=== PATIENT | male | born 1965 | race Caucasian/White ===

== ENCOUNTER → 2016-12-05 | Outpatient (CLI) | payer OTHER ==
[~2016-12-05] MED LIST: Gadobutrol 7.5 mMOL/7.5 ML SDV IVPUSH STA
--- NOTE | 2016-12-05 14:51 | MR ---
EXAMINATION: MRI cervical spine HISTORY: Dizziness COMPARISON: CT dated 11/18/2013 TECHNIQUE: Multiplanar and multisequence images obtained through the cervical spine without contrast . FINDINGS: The cervical spinal alignment appears normal. The vertebral body heights appear well maint ained. There is no abnormal bone marrow signal. The cervical spinal cord signal appears normal. The paravertebral soft tissues are within normal limits. The visualized intracranial compartments appear normal. C2-C3: Unremarkable. C3-C4: Small diffuse disc bulge with mild spinal canal stenosis. Mild to moderate left neural forami nal stenosis. C4-C5: Tiny diffuse disc bulge without significant spinal canal stenosis. Mild left neural foraminal stenosis. C5-C6: Grossly unremarkable. C6-C7: Mild diffuse disc bulge without significant spinal canal stenosis. Moderate left neural emily inal stenosis accentuated by uncovertebral hypertrophy. C7-T1: Unremarkable. IMPRESSION: Mild multilevel degenerative disc disease noted within the cervical spine with individua l details above.
--- NOTE | 2016-12-05 16:55 | MR ---
EXAMINATION: MRI of the brain with and without contrast. TECHNIQUE: Multiplanar and multisequence imaging of the brain without and following the administrati on of Gadavist. HISTORY: Dizziness. FINDINGS: Cerebral hemispheres and the deep nuclei are without hemorrhage, mass, edema, enhancement or atroph y. There is a single tiny nonspecific right frontal subcortical FLAIR signal abnormality. No abnorma l diffusion restriction. No extraaxial collections or hemorrhage. The ventricular system is of nor mal size and configuration without hydrocephalus. The brainstem and cerebellum are without hemorrha ge, mass, edema, gliosis, enhancement or atrophy. The carotid basilar artery flow voids are intact. The otomastoid airspaces are clear. No internal auditory canal or cerebellopontine angle masses or enhancement. Moderate mucosal thickening is noted within the paranasal sinuses. The globes, optic ne rves, orbital apices, optic chiasm, optic tracts, and visual cortices are unremarkable. The pituit jesus and sella turcica are unremarkable. No meningeal enhancement. The craniocervical junction is u nremarkable. No siderosis or evidence of vascular malformation. The calvarium is intact. IMPRESSION: 1. No acute intracranial findings. 2. Single subcortical FLAIR signal focus within the subcortical right frontal lobe. Possible early s mall vessel ischemic change, however nonspecific. 3. Moderate paranasal sinus disease.
== END ==
LOC: MW.MRI 09:16
DX: R42 Dizziness and giddiness (principal); J32.4 Chronic pansinusitis; M48.02 Spinal stenosis, cervical region; M47.9 Spondylosis, unspecified
CPT/HCPCS: 70553; 72141; A9585

== ENCOUNTER 2017-09-06 08:25 | Emergency (ER) | payer BC, OTHER ==
[2017-09-06] MEDS ORDERED: Albuterol/Ipratropium 3.0-0.5 MG/3 ML Neb Soln NEB ONE (08:36)
[2017-09-06] MEDS ORDERED: Aspirin 81 MG Tab.Chew PO ONE (08:36)
[2017-09-06] MEDS ORDERED: Sodium Chloride 0.9% 1,000 ML IV ONE (08:36)
--- NOTE | 2017-09-06 08:43 | EDM.PDOC ---
ED HPI GENERAL MEDICAL PROBLEM - General Chief Complaint: Respiratory Problem Stated Complaint: SHORTNESS OF BREATH Time Seen by Provider: 09/06/17 08:34 - History of Present Illness INITIAL COMMENTS - FREE TEXT/NARRATIVE: HISTORY AND PHYSICAL: History of present illness: Patient's 52-year-old white male sensory concern of shortness of breath he states his developed somewhat acutely he was driving his truck he denies chest pain nausea vomiting fever chills or other complaints he denies history of DVT or pulmonary embolus Review of systems: As per history of present illness and below otherwise all systems reviewed and negative. Past medical history: As per history of present illness and as reviewed below otherwise noncontributory. Surgical history: As per history of present illness and as reviewed below otherwise noncontributory. Social history: No reported history of drug or alcohol abuse. Family history: As per history of present illness and as reviewed below otherwise noncontributory. Physical exam: HEENT: Atraumatic, normocephalic, pupils reactive, negative for conjunctival pallor or scleral icterus, mucous membranes moist, throat clear, neck supple, nontender, trachea midline. Lungs: Diminished, breath sounds equal bilaterally, chest nontender. Heart: S1S2, regular, negative for clicks, rubs, or JVD. Abdomen: Soft, nondistended, nontender. Negative for masses or hepatosplenomegaly. Negative for costovertebral tenderness. Pelvis: Stable nontender. Genitourinary: Deferred. Rectal: Deferred. Extremities: Atraumatic, negative for cords or calf pain. Neurovascular unremarkable. Neuro: Awake, alert, oriented. Cranial nerves II through XII unremarkable. Cerebellum unremarkable. Motor and sensory unremarkable throughout. Exam nonfocal. Diagnostics: CBC CMP PT/INR troponin CTA chest carboxyhemoglobin ABG influenza screen Therapeutics: Albuterol ipratropium nebulizer Impression: 1 dyspnea Definitive disposition and diagnosis as appropriate pending reevaluation and review of above. - Related Data Allergies Allergy/AdvReac Type Severity Reaction Status Date / Time oxycodone Allergy Rash Verified 09/06/17 08:29 Home Meds: Home Meds Cholesterol Med 09/06/17 [History] Past Medical History Cardiovascular History: Reports: High Cholesterol Musculoskeletal History: Reports: Neck Pain, Chronic, Osteoarthritis Endocrine/Metabolic History: Reports: Other (See Below) Other Endocrine/Metabolic History: "thryroid problems" - Infectious Disease History Infectious Disease History: Reports: Measles, Mumps - Past Surgical History Musculoskeletal Surgical History: Reports: Arthroscopic Knee, Other (See Below) Dermatological Surgical History: Reports: Plastic Surgical Reconstruction/Repair Social & Family History - Family History Cardiac: Reports: Bypass Oncologic: Reports: Colon, Pancreatic - Tobacco Use Smoking Status *Q: Never Smoker Second Hand Smoke Exposure: No - Caffeine Use Caffeine Use: Reports: Coffee - Recreational Drug Use Recreational Drug Use: No ED ROS GENERAL - Review of Systems Review Of Systems: ROS reveals no pertinent complaints other than HPI. ED EXAM, GENERAL - Physical Exam Exam: See Below (dictated) Course - Vital Signs Last Recorded V/S: Last Vital Signs Temp 36.4 C 09/06/17 08:26 Pulse 106 H 09/06/17 08:26 Resp 24 H 09/06/17 09:00 BP 119/81 09/06/17 09:00 Pulse Ox 95 09/06/17 09:12 - Orders/Labs/Meds Orders: Active Orders 24 hr Category Date Time Status Cardiac Monitoring [RC] . DIRECTED Care 09/06/17 08:34 Active EKG Documentation Completion [RC] STAT Care 09/06/17 08:31 Active EKG Documentation Completion [RC] STAT Care 09/06/17 08:34 Active Oxygen Therapy, ED [RC] ASDIRECTED Care 09/06/17 08:34 Active Pulse Oximetry [RC] ASDIRECTED Care 09/06/17 08:34 Active RT Aerosol Therapy [RC] ASDIRECTED Care 09/06/17 08:36 Active Ang Chest [CT] Stat Exams 09/06/17 08:35 Taken Labs: Laboratory Tests 09/06/17 09/06/17 09/06/17 Range/Units 08:45 08:45 08:45 WBC 10.14 (4.0-11.0) K/uL RBC 5.49 (4.50-5.90) M/uL Hgb 17.1 H (13.0-17.0) g/dL Hct 49.9 (38.0-50.0) % MCV 90.9 (80.0-98.0) fL MCH 31.1 (27.0-32.0) pg MCHC 34.3 (31.0-37.0) g/dL RDW Std Deviation 43.0 (28.0-62.0) fl RDW Coeff of Colby 13 (11.0-15.0) % Plt Count 327 (150-400) K/uL MPV 10.00 (7.40-12.00) fL Neut % (Auto) 62.9 (48.0-80.0) % Lymph % (Auto) 16.4 (16.0-40.0) % [place] % (Auto) 9.2 (0.0-15.0) % Eos % (Auto) 9.6 H (0.0-7.0) % Baso % (Auto) 1.9 H (0.0-1.5) % Neut # (Auto) 6.4 H (1.4-5.7) K/uL Lymph # (Auto) 1.7 (0.6-2.4) K/uL [place] # (Auto) 0.9 H (0.0-0.8) K/uL Eos # (Auto) 1.0 H (0.0-0.7) K/uL Baso # (Auto) 0.2 H (0.0-0.1) K/uL INR 1.08 (0.86-1.11) ABG pH (7.35-7.45) ABG pCO2 (35-45) mmHG ABG pO2 (75-100) mmHG ABG HCO3 (22-26) mEq/L ABG Total CO2 ABG Base Excess (-2.0-2.0) ABG Carboxyhemoglobin (0-15) % Sodium (136-146) mmol/L Potassium (3.5-5.1) mmol/L Chloride (98-110) mmol/L Carbon Dioxide (21-31) mmol/L BUN (6.0-23.0) mg/dL Creatinine (0.6-1.5) mg/dL Est Cr Clr Drug Dosing mL/min Estimated GFR (MDRD) ml/min Glucose (60-110) mg/dL Calcium (8.8-10.8) mg/dL Total Bilirubin (0.1-1.5) mg/dL AST (5-40) IU/L ALT (8-54) IU/L Alkaline Phosphatase (40-150) Troponin I (0.0-0.29) NG/ML B-Natriuretic Peptide < 15 (<100) PG/ML Total Protein (6.0-8.0) g/dL Albumin (3.5-5.0) g/dL Globulin (2.0-3.5) g/dL Albumin/Globulin Ratio (1.3-2.8) 09/06/17 09/06/17 Range/Units 08:45 08:49 WBC (4.0-11.0) K/uL RBC (4.50-5.90) M/uL Hgb (13.0-17.0) g/dL Hct (38.0-50.0) % MCV (80.0-98.0) fL MCH (27.0-32.0) pg MCHC (31.0-37.0) g/dL RDW Std Deviation (28.0-62.0) fl RDW Coeff of Colby (11.0-15.0) % Plt Count (150-400) K/uL MPV (7.40-12.00) fL Neut % (Auto) (48.0-80.0) % Lymph % (Auto) (16.0-40.0) % [place] % (Auto) (0.0-15.0) % Eos % (Auto) (0.0-7.0) % Baso % (Auto) (0.0-1.5) % Neut # (Auto) (1.4-5.7) K/uL Lymph # (Auto) (0.6-2.4) K/uL [place] # (Auto) (0.0-0.8) K/uL Eos # (Auto) (0.0-0.7) K/uL Baso # (Auto) (0.0-0.1) K/uL INR (0.86-1.11) ABG pH 7.483 H (7.35-7.45) ABG pCO2 28 L (35-45) mmHG ABG pO2 67 L (75-100) mmHG ABG HCO3 21 L (22-26) mEq/L ABG Total CO2 17.4 ABG Base Excess -1.0 (-2.0-2.0) ABG Carboxyhemoglobin 0.5 (0-15) % Sodium 139 (136-146) mmol/L Potassium 4.4 (3.5-5.1) mmol/L Chloride 105 (98-110) mmol/L Carbon Dioxide 23 (21-31) mmol/L BUN 13 (6.0-23.0) mg/dL Creatinine 1.2 (0.6-1.5) mg/dL Est Cr Clr Drug Dosing 68.85 mL/min Estimated GFR (MDRD) > 60.0 ml/min Glucose 104 (60-110) mg/dL Calcium 10.3 (8.8-10.8) mg/dL Total Bilirubin 1.2 (0.1-1.5) mg/dL AST 29 (5-40) IU/L ALT 29 (8-54) IU/L Alkaline Phosphatase 85 (40-150) Troponin I < 0.10 (0.0-0.29) NG/ML B-Natriuretic Peptide (<100) PG/ML Total Protein 8.0 (6.0-8.0) g/dL Albumin 4.8 (3.5-5.0) g/dL Globulin 3.2 (2.0-3.5) g/dL Albumin/Globulin Ratio 1.5 (1.3-2.8) Meds: Medications Discontinued Medications Generic Name Dose Route Start Last Admin Trade Name Freq PRN Reason Stop Dose Admin Albuterol/Ipratropium 3 ml 09/06/17 08:36 09/06/17 08:54 Duoneb 3.0-0.5 Mg/3 Ml NEB 09/06/17 08:37 3 ml ONETIME ONE Administration Aspirin 324 mg 09/06/17 08:36 09/06/17 09:09 Aspirin PO 09/06/17 08:37 324 mg ONETIME ONE Administration Sodium Chloride 1,000 mls @ 999 mls/hr 09/06/17 08:36 09/06/17 08:56 Normal Saline IV 09/06/17 09:36 999 mls/hr STAT ONE Administration Iopamidol 100 ml 09/06/17 09:51 09/06/17 10:12 Isovue Multipack-370 (76%) IVPUSH 09/06/17 09:52 100 ml ONETIME STA Administration Departure - Departure Time of Disposition: 11:23 Disposition: Home, Self-Care 01 Condition: Good Clinical Impression: Dyspnea, Reactive airway disease, Pneumonitis - Discharge Information Forms: ED Department Discharge Additional Instructions: The following information is given to patients seen in the emergency department who are being discharged to home. This information is to outline your options for follow-up care. We provide all patients seen in our emergency department with a follow-up referral. The need for follow-up, as well as the timing and circumstances, are variable depending upon the specifics of your emergency department visit. If you don't have a primary care physician on staff, we will provide you with a referral. We always advise you to contact your personal physician following an emergency department visit to inform them of the circumstance of the visit and for follow-up with them and/or the need for any referrals to a consulting specialist. The emergency department will also refer you to a specialist when appropriate. This referral assures that you have the opportunity for followup care with a specialist. All of these measure are taken in an effort to provide you with optimal care, which includes your followup. Under all circumstances we always encourage you to contact your private physician who remains a resource for coordinating your care. When calling for followup care, please make the office aware that this follow-up is from your recent emergency room visit. If for any reason you are refused follow-up, please contact the emergency department at and asked to speak to the emergency department charge nurse. [facility] [address] [place] [id number] Albuterol Medrol Levaquin as prescribed follow-up primary medical doctor and/or clinic as discussed to return as needed as discussed - My Orders Last 24 Hours: My Active Orders 09/06/17 08:31 EKG Documentation Completion [RC] STAT 09/06/17 08:34 Cardiac Monitoring [RC] . DIRECTED EKG Documentation Completion [RC] STAT Oxygen Therapy, ED [RC] ASDIRECTED Pulse Oximetry [RC] ASDIRECTED 09/06/17 08:35 Ang Chest [CT] Stat 09/06/17 08:36 RT Aerosol Therapy [RC] ASDIRECTED - Assessment/Plan Last 24 Hours: My Active Orders 09/06/17 08:31 EKG Documentation Completion [RC] STAT 09/06/17 08:34 Cardiac Monitoring [RC] . DIRECTED EKG Documentation Completion [RC] STAT Oxygen Therapy, ED [RC] ASDIRECTED Pulse Oximetry [RC] ASDIRECTED 09/06/17 08:35 Ang Chest [CT] Stat 09/06/17 08:36 RT Aerosol Therapy [RC] ASDIRECTED
[2017-09-06 09:10] LABS: CHLORIDE,CL 105 mmol/L (98-110); SODIUM,NA 139 mmol/L (136-146)
[2017-09-06] MEDS ORDERED: Iopamidol 755 MG/ML 500 ML Multipack Bottle IVPUSH STA (09:51)
--- NOTE | 2017-09-06 14:19 | CT ---
EXAM DATE: 09/06/17 PATIENT'S AGE: 52 Patient: YURIDIA MCKEON Facility: [place], [place] Site . Site : [id number] Study: CT Chest Angio [id number] 10:23:38 AM Ordering Physician: Madeleine Triplett Final Report: INDICATION: Cough. TECHNIQUE: CT chest pulmonary PE protocol acquired with IV contrast. COMPARISON: None. FINDINGS: CARDIOVASCULAR STRUCTURES: Normal vascular enhancement of the pulmonary arteries , no sign of pulmonary embolism. Heart size is normal. No sign of aneurysm or dissection in the thoracic aorta. - MEDIASTINUM/NARESH: No mass or adenopathy. Normal thyroid gland. - LUNGS/PLEURA: There are scattered tiny knee peribronchial ground-glass opacities most notable in the lower lungs. No lobar infiltrates or nodules. The pleural spaces are clear. - CHEST WALL/AXILLA: No mass or adenopathy. - UPPER ABDOMEN: Unremarkable. - BONES: No significant findings. IMPRESSION: No sign of pulmonary embolism. Scattered areas of peribronchial pneumonitis are present bilaterally. Dictated by Niko Giles MD @ 09/06/2017 11:02:46 AM Please note that all CT scans at this facility use dose modulation, iterative reconstruction, and/or weight-based dosing when appropriate to reduce radiation dose to as low as reasonably achievable. Dictated by: Niko Giles MD @ 09/06/2017 11:02:54 (Electronic Signature) Report Signed by Proxy. [facility]PITALSandrine
[2017-09-06 19:19] VITALS: BP 109/73
== END 2017-09-06 11:43 | disposition home or self-care (01) ==
LOC: MW.ED 08:25
DX: J45.909 Unspecified asthma, uncomplicated (principal); J18.9 Pneumonia, unspecified organism; E78.00 Pure hypercholesterolemia, unspecified; Z88.5 Allergy status to narcotic agent
CPT/HCPCS: 36415; 36600; 71275; 80053; 82375; 82803; 83880; 84484; 85025; 85610; 87804; 93005; 94640; 99285; A9270; J7040; Q9967; 99283

== ENCOUNTER 2017-10-23 07:47 | Observation (INO) | payer BC, OTHER ==
--- NOTE | 2017-10-23 07:51 | EDM.PDOC ---
ED HPI GENERAL MEDICAL PROBLEM - General Stated Complaint: SHORTNESS OF BREATH Time Seen by Provider: 10/23/17 07:49 Source of Information: Reports: Patient History Limitations: Reports: No Limitations - History of Present Illness INITIAL COMMENTS - FREE TEXT/NARRATIVE: History of present illness: []Patient spends short of breath since last [place]. He stated he received albuterol inhaler and some prednisone which helped a little bit for a month but then symptoms came back. He denies any chest pain, fevers, chills, nausea vomiting or diarrhea. Review of systems: As per history of present illness and below otherwise all systems reviewed and negative. Past medical history: As per history of present illness and as reviewed below otherwise noncontributory. Surgical history: As per history of present illness and as reviewed below otherwise noncontributory. Social history: No reported history of drug or alcohol abuse. Family history: As per history of present illness and as reviewed below otherwise noncontributory. Physical exam: General: Well developed, well nourished in NAD HEENT: Atraumatic, normocephalic, pupils reactive, negative for conjunctival pallor or scleral icterus, mucous membranes moist, throat clear, neck supple, nontender, trachea midline. Lungs: Clear to auscultation, expiratory wheezing no chest wall retractions or respiratory distress Heart: S1S2, regular, negative for clicks, rubs, or JVD. Abdomen: Soft, nondistended, nontender. Negative for masses or hepatosplenomegaly. Negative for costovertebral tenderness. Pelvis: Stable nontender. Genitourinary: Deferred. Rectal: Deferred. Extremities: Atraumatic, negative for cords or calf pain. Neurovascular unremarkable. Neuro: Awake, alert, oriented. Cranial nerves II through XII unremarkable. Cerebellum unremarkable. Motor and sensory unremarkable throughout. Exam nonfocal. Diagnostics: []Labs including troponin BNP and d-dimer all negative chest x-ray negative EKG no skin changes Therapeutics: []DuoNeb with improvement and some also started the ED Impression: []COPD exacerbation Plan: []Albuterol 2 puffs every 4 hours as needed, take prednisone daily for 5 days follow-up with PMD in 1 week Definitive disposition and diagnosis as appropriate pending reevaluation and review of above. - Related Data Allergies Allergy/AdvReac Type Severity Reaction Status Date / Time oxycodone Allergy Rash Verified 10/23/17 07:54 Home Meds: Home Meds Albuterol Sulfate [Ventolin Hfa] 8 gm IH Q4HR #1 hfa.aer.ad 10/23/17 [Rx] Albuterol [Proair HFA] 8.5 gm PO DAILY PRN 10/23/17 [History] Simvastatin [Zocor] 5 mg PO DAILY 10/23/17 [History] predniSONE [Prednisone] 20 mg PO DAILY #5 tablet 10/23/17 [Rx] Past Medical History Cardiovascular History: Reports: High Cholesterol Musculoskeletal History: Reports: Neck Pain, Chronic, Osteoarthritis Endocrine/Metabolic History: Reports: Other (See Below) Other Endocrine/Metabolic History: "thryroid problems" - Infectious Disease History Infectious Disease History: Reports: Measles, Mumps - Past Surgical History Musculoskeletal Surgical History: Reports: Arthroscopic Knee, Other (See Below) Dermatological Surgical History: Reports: Plastic Surgical Reconstruction/Repair Social & Family History - Family History Cardiac: Reports: Bypass Oncologic: Reports: Colon, Pancreatic - Tobacco Use Smoking Status *Q: Never Smoker Second Hand Smoke Exposure: No - Caffeine Use Caffeine Use: Reports: Coffee - Recreational Drug Use Recreational Drug Use: No ED ROS GENERAL - Review of Systems Review Of Systems: See Below (See history of present illness) ED EXAM, GENERAL - Physical Exam Exam: See Below (See history of present illness) Course - Vital Signs Last Recorded V/S: Last Vital Signs Temp 98.4 F 10/23/17 07:56 Pulse 82 10/23/17 08:27 Resp 22 H 10/23/17 08:27 BP 130/89 10/23/17 08:27 Pulse Ox 96 10/23/17 08:27 - Orders/Labs/Meds Orders: Active Orders 24 hr Category Date Time Status RT Aerosol Therapy [RC] ASDIRECTED Care 10/23/17 07:58 Active Chest 1V Frontal [CR] Stat Exams 10/23/17 07:58 Taken Sodium Chloride 0.9% [Saline Flush] Med 10/23/17 07:59 Active 10 ml FLUSH ASDIRECTED PRN Sodium Chloride 0.9% [Saline Flush] Med 10/23/17 07:59 Active 2.5 ml FLUSH ASDIRECTED PRN Saline Lock Insert [OM.PC] Stat Oth 10/23/17 07:59 Ordered Medication Orders Sodium Chloride (Saline Flush) 10 ml FLUSH ASDIRECTED PRN PRN Reason: Keep Vein Open Sodium Chloride (Saline Flush) 2.5 ml FLUSH ASDIRECTED PRN PRN Reason: Keep Vein Open Labs: Laboratory Tests 10/23/17 10/23/17 10/23/17 Range/Units 08:06 08:06 08:06 WBC 9.29 (4.0-11.0) K/uL RBC 4.94 (4.50-5.90) M/uL Hgb 15.3 (13.0-17.0) g/dL Hct 44.9 (38.0-50.0) % MCV 90.9 (80.0-98.0) fL MCH 31.0 (27.0-32.0) pg MCHC 34.1 (31.0-37.0) g/dL RDW Std Deviation 45.4 (28.0-62.0) fl RDW Coeff of [place] 14 (11.0-15.0) % Plt Count 280 (150-400) K/uL MPV 10.10 (7.40-12.00) fL Add Manual Diff YES Neutrophils % (Manual) 61 (48.0-80.0) % Band Neutrophils % 1 % Lymphocytes % (Manual) 16 (16.0-40.0) % Monocytes % (Manual) 4 (0.0-15.0) % Eosinophils % (Manual) 17 H (0.0-7.0) % Basophils % (Manual) 1 (0.0-1.5) % Nucleated RBC % 0.0 /100WBC Absolute Seg Neuts 5.7 (1.4-5.7) Band Neutrophils # 0.1 Lymphocytes # (Manual) 1.5 (0.6-2.4) Monocytes # (Manual) 0.4 (0.0-0.8) Eosinophils # (Manual) 1.6 H (0.0-0.7) Basophils # (Manual) 0.1 (0.0-0.1) Nucleated RBCs # 0 K/uL D-Dimer, Quantitative 0.43 (0.0-0.52) mg/LFEU Sodium 143 (136-146) mmol/L Potassium 4.4 (3.5-5.1) mmol/L Chloride 111 H (98-110) mmol/L Carbon Dioxide 23 (21-31) mmol/L BUN 9 (6.0-23.0) mg/dL Creatinine 1.0 (0.6-1.5) mg/dL Est Cr Clr Drug Dosing 79.88 mL/min Estimated GFR (MDRD) > 60.0 ml/min Glucose 107 (60-110) mg/dL Calcium 9.5 (8.8-10.8) mg/dL Total Bilirubin 0.7 (0.1-1.5) mg/dL AST 16 (5-40) IU/L ALT 18 (8-54) IU/L Alkaline Phosphatase 74 (40-150) Troponin I < 0.10 (0.0-0.29) NG/ML B-Natriuretic Peptide (<100) PG/ML Total Protein 7.1 (6.0-8.0) g/dL Albumin 4.3 (3.5-5.0) g/dL Globulin 2.8 (2.0-3.5) g/dL Albumin/Globulin Ratio 1.5 (1.3-2.8) 10/23/17 Range/Units 08:06 WBC (4.0-11.0) K/uL RBC (4.50-5.90) M/uL Hgb (13.0-17.0) g/dL Hct (38.0-50.0) % MCV (80.0-98.0) fL MCH (27.0-32.0) pg MCHC (31.0-37.0) g/dL RDW Std Deviation (28.0-62.0) fl RDW Coeff of [place] (11.0-15.0) % Plt Count (150-400) K/uL MPV (7.40-12.00) fL Add Manual Diff Neutrophils % (Manual) (48.0-80.0) % Band Neutrophils % % Lymphocytes % (Manual) (16.0-40.0) % Monocytes % (Manual) (0.0-15.0) % Eosinophils % (Manual) (0.0-7.0) % Basophils % (Manual) (0.0-1.5) % Nucleated RBC % /100WBC Absolute Seg Neuts (1.4-5.7) Band Neutrophils # Lymphocytes # (Manual) (0.6-2.4) Monocytes # (Manual) (0.0-0.8) Eosinophils # (Manual) (0.0-0.7) Basophils # (Manual) (0.0-0.1) Nucleated RBCs # K/uL D-Dimer, Quantitative (0.0-0.52) mg/LFEU Sodium (136-146) mmol/L Potassium (3.5-5.1) mmol/L Chloride (98-110) mmol/L Carbon Dioxide (21-31) mmol/L BUN (6.0-23.0) mg/dL Creatinine (0.6-1.5) mg/dL Est Cr Clr Drug Dosing mL/min Estimated GFR (MDRD) ml/min Glucose (60-110) mg/dL Calcium (8.8-10.8) mg/dL Total Bilirubin (0.1-1.5) mg/dL AST (5-40) IU/L ALT (8-54) IU/L Alkaline Phosphatase (40-150) Troponin I (0.0-0.29) NG/ML B-Natriuretic Peptide 35 (<100) PG/ML Total Protein (6.0-8.0) g/dL Albumin (3.5-5.0) g/dL Globulin (2.0-3.5) g/dL Albumin/Globulin Ratio (1.3-2.8) Meds: Medications Generic Name Dose Route Start Last Admin Trade Name Freq PRN Reason Stop Dose Admin Sodium Chloride 10 ml 10/23/17 07:59 Saline Flush FLUSH ASDIRECTED PRN Keep Vein Open Sodium Chloride 2.5 ml 10/23/17 07:59 Saline Flush FLUSH ASDIRECTED PRN Keep Vein Open Discontinued Medications Generic Name Dose Route Start Last Admin Trade Name Freq PRN Reason Stop Dose Admin Albuterol/Ipratropium 3 ml 10/23/17 07:58 10/23/17 08:11 Duoneb 3.0-0.5 Mg/3 Ml NEB 10/23/17 07:59 3 ml ONETIME ONE Administration Prednisone 60 mg 10/23/17 07:58 10/23/17 08:26 Prednisone PO 10/23/17 07:59 60 mg ONETIME ONE Administration Departure - Departure Time of Disposition: 09:33 Disposition: Home, Self-Care 01 Condition: Good Clinical Impression: COPD exacerbation - Discharge Information Prescriptions: Albuterol Sulfate [Ventolin Hfa] 8 gm IH Q4HR #1 hfa.aer.ad predniSONE [Prednisone] 20 mg PO DAILY #5 tablet Referrals: PCP,None [Primary Care Provider] - Additional Instructions: The following information is given to patients seen in the emergency department who are being discharged to home. This information is to outline your options for follow-up care. We provide all patients seen in our emergency department with a follow-up referral. The need for follow-up, as well as the timing and circumstances, are variable depending upon the specifics of your emergency department visit. If you don't have a primary care physician on staff, we will provide you with a referral. We always advise you to contact your personal physician following an emergency department visit to inform them of the circumstance of the visit and for follow-up with them and/or the need for any referrals to a consulting specialist. The emergency department will also refer you to a specialist when appropriate. This referral assures that you have the opportunity for follow-up care with a specialist. All of these measure are taken in an effort to provide you with optimal care, which includes your follow-up. Under all circumstances we always encourage you to contact your private physician who remains a resource for coordinating your care. When calling for follow-up care, please make the office aware that this follow-up is from your recent emergency room visit. If for any reason you are refused follow-up, please contact the [facility] Emergency Department at and asked to speak to the emergency department charge nurse. [facility] [address] [place] [id number] - My Orders Last 24 Hours: My Active Orders 10/23/17 07:58 RT Aerosol Therapy [RC] ASDIRECTED Chest 1V Frontal [CR] Stat 10/23/17 07:59 Sodium Chloride 0.9% [Saline Flush] 10 ml FLUSH ASDIRECTED PRN Sodium Chloride 0.9% [Saline Flush] 2.5 ml FLUSH ASDIRECTED PRN Saline Lock Insert [OM.PC] Stat - Assessment/Plan Last 24 Hours: My Active Orders 10/23/17 07:58 RT Aerosol Therapy [RC] ASDIRECTED Chest 1V Frontal [CR] Stat 10/23/17 07:59 Sodium Chloride 0.9% [Saline Flush] 10 ml FLUSH ASDIRECTED PRN Sodium Chloride 0.9% [Saline Flush] 2.5 ml FLUSH ASDIRECTED PRN Saline Lock Insert [OM.PC] Stat
[2017-10-23] MEDS ORDERED: predniSONE 20 MG Tab PO ONE (07:58)
[2017-10-23] MEDS ORDERED: Albuterol/Ipratropium 3.0-0.5 MG/3 ML Neb Soln NEB ONE ×3 (07:58→09:47)
[2017-10-23] MEDS ORDERED: Sodium Chloride 0.9% 2.5 ML Syringe FLUSH PRN (07:59)
[2017-10-23] MEDS ORDERED: Sodium Chloride 0.9% 10 ML Syringe FLUSH PRN (07:59)
[2017-10-23 08:39] LABS: CHLORIDE,CL 111 mmol/L (98-110); SODIUM,NA 143 mmol/L (136-146)
[2017-10-23] MEDS ORDERED: Morphine 2 MG/ML Syringe IVPUSH PRN (11:17)
[2017-10-23] MEDS ORDERED: Ondansetron 4 MG Tab.DIS PO PRN (11:17)
[2017-10-23] MEDS ORDERED: Acetaminophen 325 MG Tab PO PRN (11:17)
[2017-10-23] MEDS ORDERED: Ondansetron 4 MG/2 ML SDV IVPUSH PRN (11:17)
[2017-10-23] MEDS ORDERED: Albuterol/Ipratropium 3.0-0.5 MG/3 ML Neb Soln NEB PRN (11:17)
[2017-10-23] MEDS: methylPREDNISolone Sodium Succinate 125 MG/2 ML SDV IVPUSH SCH ×3 (11:59→23:28)
[2017-10-23] MEDS: Enoxaparin 40 MG/0.4 ML Syringe SUBCUT SCH (12:05)
--- NOTE | 2017-10-23 12:08 | PCM.HP ---
H&P History of Present Illness - General Date of Service: 10/23/17 Admit Problem/Dx: Hypoxia Source of Information: Patient History Limitations: Reports: No Limitations - History of Present Illness Initial Comments - Free Text/Narative: 52-year-old male presenting to emergency department with a chief complaint of shortness of breath starting last evening with past medical history of hyperlipidemia. Patient states that last evening he noticed he was a little more short breath. He did have some difficulty with sleep and when he woke up this morning and went to work he became progressively more short of breath so presented to emergency department for further evaluation. He states that this did happen one time soon after [place] this last year but never before. He was seen at the [facility] during that episode and given albuterol and another medication that he thinks was Singulair. He has no history of COPD and has never been a smoker. He has no history of asthma but feels that the cold weather may have precipitated this. He has never had pulmonary function testing. Patient states that he has no high blood pressure but does take medication for his cholesterol. He denies any associated symptoms such as nausea, vomiting, diarrhea, chest pain, syncopal episodes, focal neurologic deficits. 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 In the emergency department CBC, d-dimer, CMP, troponin, BNP were all unremarkable. Chest x-ray revealed no acute cardiopulmonary disease. ECG showed normal sinus rhythm with no acute signs of ischemia. He was given duo-nebs 3 oral prednisone 60 mg 1 in the ED and was still satting below 90% without oxygen. Patient admitted for hypoxia. - Related Data Allergies/Adverse Reactions: Allergies Allergy/AdvReac Type Severity Reaction Status Date / Time oxycodone Allergy Rash Verified 10/23/17 07:54 Home Medications: Home Meds Albuterol Sulfate [Ventolin Hfa] 8 gm IH Q4HR #1 hfa.aer.ad 10/23/17 [Rx] Albuterol [IJD: Albuterol] 2.5 mg .XX Q4HR PRN #25 ml 10/23/17 [Rx] Albuterol [Proair HFA] 8.5 gm PO DAILY PRN 10/23/17 [History] Simvastatin [Zocor] 5 mg PO DAILY 10/23/17 [History] predniSONE [Prednisone] 20 mg PO DAILY #5 tablet 10/23/17 [Rx] Past Medical History HEENT History: Reports: None Cardiovascular History: Reports: High Cholesterol Respiratory History: Reports: Pneumonia, Recurrent Gastrointestinal History: Reports: None Genitourinary History: Reports: None Musculoskeletal History: Reports: Neck Pain, Chronic, Osteoarthritis Neurological History: Reports: None Psychiatric History: Reports: None Endocrine/Metabolic History: Reports: Other (See Below) Other Endocrine/Metabolic History: "thryroid problems" Hematologic History: Reports: None Immunologic History: Reports: None Oncologic (Cancer) History: Reports: None Dermatologic History: Reports: None - Infectious Disease History Infectious Disease History: Reports: Measles, Mumps - Past Surgical History Head Surgeries/Procedures: Reports: None HEENT Surgical History: Reports: None Respiratory Surgical History: Reports: None GI Surgical History: Reports: None Male Surgical History: Reports: None Neurological Surgical History: Reports: None Musculoskeletal Surgical History: Reports: Arthroscopic Knee, Other (See Below) Oncologic Surgical History: Reports: None Dermatological Surgical History: Reports: Plastic Surgical Reconstruction/Repair Social & Family History - Family History Family Medical History: Noncontributory Cardiac: Reports: Bypass Oncologic: Reports: Colon, Pancreatic - Tobacco Use Smoking Status *Q: Former Smoker Used Tobacco, but Quit: Yes Month Tobacco Last Used: 1989 Second Hand Smoke Exposure: No - Caffeine Use Caffeine Use: Reports: Coffee - Recreational Drug Use Recreational Drug Use: No H&P Review of Systems - Review of Systems: Review Of Systems: See Below General: Denies: Fever, Chills, Malaise, Weakness, Fatigue HEENT: Reports: Rhinitis, Post Nasal Drip, Sinus Congestion. Denies: Dysphasia , Headaches, Sore Throat Pulmonary: Reports: Shortness of Breath, Wheezing, Cough, Sputum Cardiovascular: Denies: Chest Pain, Palpitations, Edema Gastrointestinal: Reports: Nausea. Denies: Abdominal Pain, Diarrhea, Vomiting Genitourinary: Denies: Dysuria, Hematuria Musculoskeletal: Denies: Neck Pain, Leg Pain Skin: Denies: Cyanosis Psychiatric: Denies: Confusion Neurological: Denies: Confusion, Dizziness, Headache Hematologic/Lymphatic: Denies: Anemia Immunologic: Denies: Anaphylaxis Exam - Exam Exam: See Below - Vital Signs Vital Signs: Last Vital Signs Temp 98.4 F 10/23/17 07:56 Pulse 84 10/23/17 10:34 Resp 20 10/23/17 10:34 BP 125/79 10/23/17 10:34 Pulse Ox 94 L 10/23/17 10:34 Weight: 63 kg - Exam Quality Assessment: Supplemental Oxygen, DVT Prophylaxis General: Alert, Oriented, Cooperative HEENT: Conjunctiva Clear, EACs Clear, EOMI, Hearing Intact, Mucosa Moist & [place] , Nares Patent, Normal Nasal Septum, Posterior Pharynx Clear, PERRLA Neck: Supple, Trachea Midline, 2 Lungs: Normal Respiratory Effort, Decreased Breath Sounds, Wheezing Cardiovascular: Regular Rate, Regular Rhythm, Normal S1, Normal S2 GI/Abdominal Exam: Normal Bowel Sounds, Soft, Non-Tender, No Organomegaly (Male) Exam: Deferred Back Exam: Normal Inspection Extremities: Normal Inspection, Non-Tender, No Pedal Edema, Normal Capillary Refill Peripheral Pulses: 2+: Radial (L), Radial (R), Posterior Tibial (L), Posterior Tibial (R), Dorsalis Pedis (L), Dorsalis Pedis (R) Skin: Warm, Dry, Intact Neurological: Cranial Nerves Intact, Reflexes Equal Bilateral Neuro Extensive - Mental Status: Alert, Oriented x3, Normal Mood/Affect, Normal Cognition Psychiatric: Alert, Normal Affect, Normal Mood - Patient Data Result Diagrams: 10/23/17 08:06 10/23/17 08:06 *Q Meaningful Use (ADM) - VTE *Q VTE Criteria *Q: - Stroke *Q Stroke Criteria *Q: - AMI *Q AMI Criteria *Q: - Problem List (1) Hypoxia SNOMED Code(s): 140751497 ICD Code: R09.02 - HYPOXEMIA Status: Acute Priority: High Current Visit : Yes (2) Reactive airway disease SNOMED Code(s): 763269989938 ICD Code: J45.909 - UNSPECIFIED ASTHMA, UNCOMPLICATED Status: Suspected Priority: High Current Visit: Yes Qualifiers: Asthma severity: unspecified severity Asthma complication type: with acute exacerbation Problem List Initiated/Reviewed/Updated: Yes Orders Last 24hrs: Active Orders 24 hr Category Date Time Status Patient Status [ADT] Routine ADT 10/23/17 11:17 Active Antiembolic Devices [RC] PER UNIT ROUTINE Care 10/23/17 11:20 Active Intake and Output [RC] QSHIFT Care 10/23/17 11:18 Active Oxygen Therapy [RC] PRN Care 10/23/17 11:17 Active RT Aerosol Therapy [RC] ASDIRECTED Care 10/23/17 11:21 Active Up With Assistance [RC] ASDIRECTED Care 10/23/17 11:17 Active VTE/DVT Education [RC] PER UNIT ROUTINE Care 10/23/17 11:17 Active Vital Signs [RC] Q4H Care 10/23/17 11:17 Active Regular Diet [DIET] Diet 10/23/17 Lunch Active BASIC METABOLIC PANEL,BMP [CHEM] AM Lab 10/24/17 05:11 Ordered BASIC METABOLIC PANEL,BMP [CHEM] AM Lab 10/25/17 05:11 Ordered BASIC METABOLIC PANEL,BMP [CHEM] AM Lab 10/26/17 05:11 Ordered CBC WITH AUTO DIFF [HEME] AM Lab 10/24/17 05:11 Ordered CBC WITH AUTO DIFF [HEME] AM Lab 10/25/17 05:11 Ordered CBC WITH AUTO DIFF [HEME] AM Lab 10/26/17 05:11 Ordered Acetaminophen [Tylenol] Med 10/23/17 11:17 Active 650 mg PO Q4H PRN Albuterol/Ipratropium [DuoNeb 3.0-0.5 MG/3 ML] Med 10/23/17 11:17 Active 3 ml NEB Q4HRRT PRN Enoxaparin [Lovenox] Med 10/23/17 11:30 Active 40 mg SUBCUT DAILY Morphine Med 10/23/17 11:17 Active 2 mg IVPUSH Q2H PRN Ondansetron [Zofran ODT] Med 10/23/17 11:17 Active 4 mg PO Q4H PRN Ondansetron [Zofran] Med 10/23/17 11:17 Active 4 mg IVPUSH Q4H PRN Simvastatin [Zocor] Med 10/24/17 09:00 Active 5 mg PO DAILY methylPREDNISolone Sod Succ [Solu-MEDROL] Med 10/23/17 11:30 Active 60 mg IVPUSH Q6H Sequential Compression Device [OM.PC] Per Unit Routine Oth 10/23/17 11:18 Ordered Resuscitation Status Routine Resus Stat 10/23/17 11:17 Ordered Medication Orders Acetaminophen (Tylenol) 650 mg PO Q4H PRN PRN Reason: Pain (Mild 1-3)/fever Albuterol/Ipratropium (Duoneb 3.0-0.5 Mg/3 Ml) 3 ml NEB Q4HRRT PRN PRN Reason: Shortness Of Breath/wheezing Enoxaparin Sodium (Lovenox) 40 mg SUBCUT DAILY [facility] Methylprednisolone Sodium Succinate (Solu-Medrol) 60 mg IVPUSH Q6H [facility] Last Admin: 10/23/17 11:59 Dose: 60 mg Morphine Sulfate (Morphine) 2 mg IVPUSH Q2H PRN PRN Reason: Pain (severe 7-10) Stop: 10/24/17 11:20 Ondansetron HCl (Zofran Odt) 4 mg PO Q4H PRN PRN Reason: nausea, able to take PO Ondansetron HCl (Zofran) 4 mg IVPUSH Q4H PRN PRN Reason: Nausea Simvastatin (Zocor) 5 mg PO DAILY [facility] Sodium Chloride (Saline Flush) 10 ml FLUSH ASDIRECTED PRN PRN Reason: Keep Vein Open Sodium Chloride (Saline Flush) 2.5 ml FLUSH ASDIRECTED PRN PRN Reason: Keep Vein Open Assessment/Plan Comment:: 52-year-old male admitted 10/23/17 for hypoxia with past medical history of hyperlipidemia. Hypoxia: Patient has no history of long-term smoking and has only had one previous episode seems more of a reactive airways type of reaction but patient will need only function tests in outpatient setting to verify that it is not COPD related. Will treat with DuoNeb's, Solu-Medrol 60 mg every 6, inspiratory spirometry. Plan to switch to oral medicine is patient is more stabilized. Hyperlipidemia: As per [facility] We'll continue home medication. VTE proph: Lovenox, SCD Dispo: 1-2 days.
--- NOTE | 2017-10-23 15:21 | CR ---
EXAM DATE: 10/23/17 PATIENT'S AGE: 52 Patient: YURIDIA MCKEON Facility: [place], [place] Site . Site : [id number] Study: XRay Chest [id number]/12/2018 8:23:54 AM Ordering Physician: Gokul Calderón Final Report: HISTORY: Pain, shortness of breath. FINDINGS: AP portable chest radiograph demonstrates a normal cardiac silhouette. Pulmonary vasculature and peg are normal. No lobar consolidation, pleural effusion or pneumothorax. IMPRESSION: No acute cardiopulmonary disease. Dictated by Sana Tolliver MD @ 10/23/2017 8:38:43 AM Dictated by: Sana Tolliver MD @ 10/23/2017 08:38:50 (Electronic Signature) Report Signed by Proxy. [facility]
[2017-10-24] MEDS: methylPREDNISolone Sodium Succinate 125 MG/2 ML SDV IVPUSH SCH (05:33)
[2017-10-24 05:47] LABS: CHLORIDE,CL 109 mmol/L (98-110); SODIUM,NA 138 mmol/L (136-146)
[2017-10-24 08:22] VITALS: BP 102/54
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
[2017-10-24] MEDS: Enoxaparin 40 MG/0.4 ML Syringe SUBCUT SCH (08:57)
[2017-10-24] MEDS ORDERED: Simvastatin 10 MG Tab PO SCH (09:00)
== END 2017-10-24 10:00 | disposition home or self-care (01) ==
LOC: MW.ED 07:47 → MW.MS 10:42
PROVIDERS: ADMIT Family Medicine; ATTEND Family Medicine
DX: R06.02 Shortness of breath (principal); R09.02 Hypoxemia; J45.909 Unspecified asthma, uncomplicated; E78.5 Hyperlipidemia, unspecified; E78.00 Pure hypercholesterolemia, unspecified; M19.90 Unspecified osteoarthritis, unspecified site; G89.29 Other chronic pain; M54.2 Cervicalgia; Z87.891 Personal history of nicotine dependence; Z80.0 Family history of malignant neoplasm of digestive organs; Z79.899 Other long term (current) drug therapy; Z88.5 Allergy status to narcotic agent; Z98.890 Other specified postprocedural states
CPT/HCPCS: 36415; 71045; 80048; 80053; 83880; 84484; 85025; 85379; 93005; 94640; 96372; 96374; 96376; 99285; A9270; G0378; J1650; J2930; 99283

== ENCOUNTER 2017-12-07 09:28 | Day surgery (SDC) | payer OTHER, BC ==
[~2017-12-07 09:28] MED LIST changes: -Gadobutrol 7.5 mMOL/7.5 ML SDV IVPUSH STA; +Lactated Ringers 1,000 ML IV SCH
[2017-12-07] MEDS ORDERED: Albuterol/Ipratropium 3.0-0.5 MG/3 ML Neb Soln NEB ONE (10:11)
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
[2017-12-07] MEDS ORDERED: Propofol 200 MG/20 ML SDV ONE ×2 (11:41→12:32)
[2017-12-07] MEDS ORDERED: Lidocaine 2% 5 ML SDV ONE (11:41)
[2017-12-07] MEDS ORDERED: Midazolam 1 MG/ML 2 ML SDV ONE (11:42)
[2017-12-07] MEDS ORDERED: fentaNYL 100 MCG/2 ML SDV ONE (11:42)
--- NOTE | 2017-12-07 12:36 | PCM.OPNOTE ---
- General Post-Op/Procedure Note Date of Surgery/Procedure: 12/07/17 Operative Procedure(s): colonoscopy w bx Findings: see dict [id number] Pre Op Diagnosis: scrn colonoscopy Post-Op Diagnosis: colon polyp Anesthesia Technique: Moderate Sedation Primary Surgeon: Charles Munguia Pathology: 2 mm sessile polyp at 90cm when scope went out Complications: None Condition: Good
--- NOTE | 2017-12-07 13:09 | PCM48HPAN ---
Post Anesthesia Note - EVALUATION WITHIN 48HRS OF ANESTHETIC Vital Signs in Normal Range: Yes Patient Participated in Evaluation: Yes Respiratory Function Stable: Yes Airway Patent: Yes Cardiovascular Function Stable: Yes Hydration Status Stable: Yes Pain Control Satisfactory: Yes Nausea and Vomiting Control Satisfactory: Yes Mental Status Recovered: Yes Resp Rate: 18 - COMMENTS/OBSERVATIONS Free Text/Narrative:: no anesthesia problems
--- NOTE | 2017-12-07 13:18 | OR ---
SURGEON: Charles Munguia MD DATE OF PROCEDURE: 12/07/2017 PREOPERATIVE DIAGNOSIS: Screening colonoscopy. POSTOPERATIVE DIAGNOSIS: Colon polyp. PROCEDURE PERFORMED: Colonoscopy with biopsy. COMPLICATIONS: None. FINDINGS: 1. The patient is easily sedated with [employer] and Diprivan. The patient is soundly snoring. 2. Colon is rather straight forward. Cecum indicated by ileocecal fold, one- to-one indentation, light immittance, and appendiceal orifice. Mucosa examined upon scope pulling out and some bubbles and does compromise the study, but not too much and the patient has a tiny polyp at distance 90, and the scope pulling out 2 mm sessile polyp removed with biopsy forceps. The patient does not have diverticulosis, polyp, mass, growth, inflammation, stricture, ulceration, AV malformation, bleeding. The patient does have anal tags and internal hemorrhoids, no external hemorrhoids. The patient would benefit from a repeat colonoscopy 10 years from today or if clinically indicated otherwise or if the pathology of the polyp indicated otherwise. DESCRIPTION OF PROCEDURE: The patient was taken to the endoscopy room. A time out was called, patient identified, and procedure identified. Diprivan was then administrated. Patient went from awake to sleep, hearing doctor talking or door closing is normal. Perineum inspection and digital examination were then performed. A well- lubricated colonoscope was gently inserted through the rectum, advanced past the rectosigmoid junction, the descending colon, splenic flexure, transverse colon, hepatic flexure, ascending colon, arrived to the cecum. Cecum was identified as dictated in the finding. Then the scope was carefully withdrawn while attention was paid to the mucosal surface for any abnormality. Air will be sucked out during the scope withdrawal. At the rectum, retroflexed to examine any rectal diseases, fistula or hemorrhoids. During mucosal examination, abnormality or polyp was noted; picture taken and biopsy performed. Patient tolerated procedure well. There were no intraoperative complications, and Dr. Munguia was present throughout the whole procedure. JEREMY / OTIS /[id number]
[2017-12-07 13:31] VITALS: BP 109/72
== END 2017-12-07 13:20 | disposition home or self-care (01) ==
LOC: MW.SDS 09:28
PROVIDERS: ATTEND Surgery
DX: Z12.11 Encounter for screening for malignant neoplasm of colon (principal); K63.5 Polyp of colon; J45.909 Unspecified asthma, uncomplicated; M19.90 Unspecified osteoarthritis, unspecified site; Z79.899 Other long term (current) drug therapy; Z80.0 Family history of malignant neoplasm of digestive organs; Z88.5 Allergy status to narcotic agent; Z88.8 Allergy status to other drugs, medicaments and biological substances; Z87.891 Personal history of nicotine dependence; Z79.51 Long term (current) use of inhaled steroids
CPT/HCPCS: 45380; 94640; J2250; J3010; J7120; J2704

== ENCOUNTER 2017-12-09 21:01 | Observation (INO) | payer OTHER, BC ==
[2017-12-09] MEDS ORDERED: Albuterol/Ipratropium 3.0-0.5 MG/3 ML Neb Soln NEB ONE ×2 (21:15→21:52)
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
[2017-12-09 22:43] LABS: CHLORIDE,CL 106 mmol/L (98-107); SODIUM,NA 142 mmol/L (136-148)
[2017-12-09] MEDS ORDERED: methylPREDNISolone Sodium Succinate 125 MG/2 ML SDV IVPUSH ONE (22:50)
[2017-12-09] MEDS ORDERED: Montelukast 10 MG Tab PO SCH (23:45)
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
[2017-12-09] MEDS ORDERED: Ondansetron 4 MG/2 ML SDV IVPUSH PRN (23:57)
[2017-12-09] MEDS ORDERED: Acetaminophen 325 MG Tab PO PRN (23:57)
[2017-12-09] MEDS ORDERED: Albuterol 8 GM Inhaler INH PRN (23:59)
[2017-12-10] MEDS: Enoxaparin 40 MG/0.4 ML Syringe SUBCUT SCH (01:02)
[2017-12-10] MEDS: Azithromycin 250 MG Tab PO SCH (01:02)
[2017-12-10] MEDS: Albuterol/Ipratropium 3.0-0.5 MG/3 ML Neb Soln NEB SCH ×6 (01:28→21:22)
[2017-12-10] MEDS: methylPREDNISolone Sodium Succinate 125 MG/2 ML SDV IVPUSH SCH ×3 (05:59→21:24)
[2017-12-10 06:22] LABS: CHLORIDE,CL 105 mmol/L (98-107); SODIUM,NA 141 mmol/L (136-148)
--- NOTE | 2017-12-10 14:17 | PCM.PN ---
- Review of Systems Systems Review Comment:: cough is improving, short of breath with exertion - Patient Data Vitals - Most Recent: Last Vital Signs Temp 36.8 C 12/10/17 12:08 Pulse 98 12/10/17 12:08 Resp 18 12/10/17 12:08 BP 144/80 H 12/10/17 12:08 Pulse Ox 95 12/10/17 12:08 Weight - Most Recent: 70 kg I&O - Last 24 Hours: Intake & Output 12/09/17 12/10/17 12/10/17 22:59 06:59 14:59 Intake Total 800 Output Total 650 Balance 150 Lab Results Last 24 Hours: Laboratory Results - last 24 hr 12/09/17 12/09/17 12/09/17 Range/Units 22:15 22:15 22:15 WBC 8.76 (4.0-11.0) K/uL RBC 4.98 (4.50-5.90) M/uL Hgb 15.6 (13.0-17.0) g/dL Hct 46.0 (38.0-50.0) % MCV 92.4 (80.0-98.0) fL MCH 31.3 (27.0-32.0) pg MCHC 33.9 (31.0-37.0) g/dL RDW Std Deviation 48.6 (28.0-62.0) fl RDW Coeff of Col[place] 14 (11.0-15.0) % Plt Count 258 (150-400) K/uL MPV 10.00 (7.40-12.00) fL Neut % (Auto) 54.7 (48.0-80.0) % Lymph % (Auto) 23.7 (16.0-40.0) % Bradley % (Auto) 8.7 (0.0-15.0) % Eos % (Auto) 10.7 H (0.0-7.0) % Baso % (Auto) 2.2 H (0.0-1.5) % Neut # (Auto) 4.8 (1.4-5.7) K/uL Lymph # (Auto) 2.1 (0.6-2.4) K/uL Bradley # (Auto) 0.8 (0.0-0.8) K/uL Eos # (Auto) 0.9 H (0.0-0.7) K/uL Baso # (Auto) 0.2 H (0.0-0.1) K/uL Nucleated RBC % 0.0 /100WBC Nucleated RBCs # 0 K/uL INR 1.05 D-Dimer, Quantitative 0.21 (0.0-0.52) mg/LFEU Sodium 142 (136-148) mmol/L Potassium 3.5 (3.5-5.1) mmol/L Chloride 106 (98-107) mmol/L Carbon Dioxide 26.2 (21.0-32.0) mmol/L BUN 9 (7.0-18.0) mg/dL Creatinine 1.1 (0.8-1.3) mg/dL Est Cr Clr Drug Dosing 75.11 mL/min Estimated GFR (MDRD) > 60.0 ml/min Glucose 100 (74-106) mg/dL Calcium 9.2 (8.5-10.1) mg/dL Total Bilirubin 0.7 (0.2-1.0) mg/dL AST 20 (15-37) IU/L ALT 32 (14-63) IU/L Alkaline Phosphatase 81 (46-116) U/L Troponin I < 0.050 (0.000-0.056) ng/mL B-Natriuretic Peptide (<100) PG/ML Total Protein 7.1 (6.4-8.2) g/dL Albumin 4.1 (3.4-5.0) g/dL Globulin 3.0 (2.0-3.5) g/dL Albumin/Globulin Ratio 1.4 (1.3-2.8) Urine Color Urine Appearance Urine pH (5.0-8.0) Ur Specific [place] (1.001-1.035) Urine Protein (NEGATIVE) mg/dL Urine Glucose (UA) (NEGATIVE) mg/dL Urine Ketones (NEGATIVE) mg/dL Urine Occult Blood (NEGATIVE) Urine Nitrite (NEGATIVE) Urine Bilirubin (NEGATIVE) Urine Ictotest Urine Urobilinogen (<2.0) EU/dL Ur Leukocyte Esterase (NEGATIVE) Urine RBC (0-2/HPF) Urine WBC (0-5/HPF) Ur Epithelial Cells (NONE-FEW) Urine Bacteria (NEGATIVE) Urine Mucus (NONE-MOD) 12/09/17 12/09/17 12/10/17 Range/Units 22:15 22:50 05:46 WBC (4.0-11.0) K/uL RBC (4.50-5.90) M/uL Hgb (13.0-17.0) g/dL Hct (38.0-50.0) % MCV (80.0-98.0) fL MCH (27.0-32.0) pg MCHC (31.0-37.0) g/dL RDW Std Deviation (28.0-62.0) fl RDW Coeff of Colby (11.0-15.0) % Plt Count (150-400) K/uL MPV (7.40-12.00) fL Neut % (Auto) (48.0-80.0) % Lymph % (Auto) (16.0-40.0) % Bradley % (Auto) (0.0-15.0) % Eos % (Auto) (0.0-7.0) % Baso % (Auto) (0.0-1.5) % Neut # (Auto) (1.4-5.7) K/uL Lymph # (Auto) (0.6-2.4) K/uL Bradley # (Auto) (0.0-0.8) K/uL Eos # (Auto) (0.0-0.7) K/uL Baso # (Auto) (0.0-0.1) K/uL Nucleated RBC % /100WBC Nucleated RBCs # K/uL INR D-Dimer, Quantitative (0.0-0.52) mg/LFEU Sodium 141 (136-148) mmol/L Potassium 4.7 (3.5-5.1) mmol/L Chloride 105 (98-107) mmol/L Carbon Dioxide 26.1 (21.0-32.0) mmol/L BUN 10 (7.0-18.0) mg/dL Creatinine 1.1 (0.8-1.3) mg/dL Est Cr Clr Drug Dosing 75.11 mL/min Estimated GFR (MDRD) > 60.0 ml/min Glucose 147 H (74-106) mg/dL Calcium 9.7 (8.5-10.1) mg/dL Total Bilirubin (0.2-1.0) mg/dL AST (15-37) IU/L ALT (14-63) IU/L Alkaline Phosphatase (46-116) U/L Troponin I (0.000-0.056) ng/mL B-Natriuretic Peptide 17 (<100) PG/ML Total Protein (6.4-8.2) g/dL Albumin (3.4-5.0) g/dL Globulin (2.0-3.5) g/dL Albumin/Globulin Ratio (1.3-2.8) Urine Color YELLOW Urine Appearance HAZY Urine pH 5.5 (5.0-8.0) Ur Specific [place] >= 1.030 (1.001-1.035) Urine Protein NEGATIVE (NEGATIVE) mg/dL Urine Glucose (UA) NEGATIVE (NEGATIVE) mg/dL Urine Ketones TRACE H (NEGATIVE) mg/dL Urine Occult Blood NEGATIVE (NEGATIVE) Urine Nitrite NEGATIVE (NEGATIVE) Urine Bilirubin SMALL H (NEGATIVE) Urine Ictotest NEGATIVE Urine Urobilinogen 0.2 (<2.0) EU/dL Ur Leukocyte Esterase NEGATIVE (NEGATIVE) Urine RBC 0-2 (0-2/HPF) Urine WBC 0-1 (0-5/HPF) Ur Epithelial Cells RARE (NONE-FEW) Urine Bacteria FEW (NEGATIVE) Urine Mucus LIGHT (NONE-MOD) 12/10/17 Range/Units 05:46 WBC 4.84 (4.0-11.0) K/uL RBC 5.00 (4.50-5.90) M/uL Hgb 15.6 (13.0-17.0) g/dL Hct 46.1 (38.0-50.0) % MCV 92.2 (80.0-98.0) fL MCH 31.2 (27.0-32.0) pg MCHC 33.8 (31.0-37.0) g/dL RDW Std Deviation 48.6 (28.0-62.0) fl RDW Coeff of [place] 14 (11.0-15.0) % Plt Count 271 (150-400) K/uL MPV 10.20 (7.40-12.00) fL Neut % (Auto) (48.0-80.0) % Lymph % (Auto) (16.0-40.0) % Bradley % (Auto) (0.0-15.0) % Eos % (Auto) (0.0-7.0) % Baso % (Auto) (0.0-1.5) % Neut # (Auto) (1.4-5.7) K/uL Lymph # (Auto) (0.6-2.4) K/uL Bradley # (Auto) (0.0-0.8) K/uL Eos # (Auto) (0.0-0.7) K/uL Baso # (Auto) (0.0-0.1) K/uL Nucleated RBC % 0.0 /100WBC Nucleated RBCs # 0 K/uL INR D-Dimer, Quantitative (0.0-0.52) mg/LFEU Sodium (136-148) mmol/L Potassium (3.5-5.1) mmol/L Chloride (98-107) mmol/L Carbon Dioxide (21.0-32.0) mmol/L BUN (7.0-18.0) mg/dL Creatinine (0.8-1.3) mg/dL Est Cr Clr Drug Dosing mL/min Estimated GFR (MDRD) ml/min Glucose (74-106) mg/dL Calcium (8.5-10.1) mg/dL Total Bilirubin (0.2-1.0) mg/dL AST (15-37) IU/L ALT (14-63) IU/L Alkaline Phosphatase (46-116) U/L Troponin I (0.000-0.056) ng/mL B-Natriuretic Peptide (<100) PG/ML Total Protein (6.4-8.2) g/dL Albumin (3.4-5.0) g/dL Globulin (2.0-3.5) g/dL Albumin/Globulin Ratio (1.3-2.8) Urine Color Urine Appearance Urine pH (5.0-8.0) Ur Specific [place] (1.001-1.035) Urine Protein (NEGATIVE) mg/dL Urine Glucose (UA) (NEGATIVE) mg/dL Urine Ketones (NEGATIVE) mg/dL Urine Occult Blood (NEGATIVE) Urine Nitrite (NEGATIVE) Urine Bilirubin (NEGATIVE) Urine Ictotest Urine Urobilinogen (<2.0) EU/dL Ur Leukocyte Esterase (NEGATIVE) Urine RBC (0-2/HPF) Urine WBC (0-5/HPF) Ur Epithelial Cells (NONE-FEW) Urine Bacteria (NEGATIVE) Urine Mucus (NONE-MOD) Wilson Results Last 24 Hours: Microbiology 12/10/17 01:35 Influenza Type A Antigen Screen - Final Nasopharyngeal Swab NEGATIVE INFLUENZA A VIRUS AG Influenza Type B Antigen Screen - Final NEGATIVE INFLUENZA B VIRUS AG Med Orders - Current: Current Medications Acetaminophen (Tylenol) 650 mg PO Q4H PRN PRN Reason: Pain (Mild 1-3)/fever Albuterol (Ventolin Hfa) 0 gm INH Q2H PRN PRN Reason: Shortness of Breath Albuterol/Ipratropium (Duoneb 3.0-0.5 Mg/3 Ml) 3 ml NEB Q4HRRT [facility] Last Admin: 12/10/17 13:44 Dose: 3 ml Azithromycin (Zithromax) 500 mg PO Q24H [facility] Last Admin: 12/10/17 01:02 Dose: 500 mg Enoxaparin Sodium (Lovenox) 40 mg SUBCUT Q24H [facility] Last Admin: 12/10/17 01:02 Dose: 40 mg Methylprednisolone Sodium Succinate (Solu-Medrol) 125 mg IVPUSH Q8H [facility] Last Admin: 12/10/17 05:59 Dose: 125 mg Montelukast Sodium (Singulair) 10 mg PO ASDIRECTED [facility] Ondansetron HCl (Zofran) 4 mg IVPUSH Q4H PRN PRN Reason: Nausea Simvastatin (Zocor) 10 mg PO BEDTIME [facility] Discontinued Medications Albuterol/Ipratropium (Duoneb 3.0-0.5 Mg/3 Ml) 3 ml NEB ONETIME ONE Stop: 12/09/17 21:16 Last Admin: 12/09/17 21:19 Dose: 3 ml Albuterol/Ipratropium (Duoneb 3.0-0.5 Mg/3 Ml) 3 ml NEB ONETIME ONE Stop: 12/09/17 21:53 Last Admin: 12/09/17 22:05 Dose: 3 ml Methylprednisolone Sodium Succinate (Solu-Medrol) 125 mg IVPUSH ONETIME ONE Stop: 12/09/17 22:51 Last Admin: 12/09/17 23:06 Dose: 125 mg - Exam Lungs: Clear to Auscultation, Normal Respiratory Effort Cardiovascular: Regular Rate, Regular Rhythm GI/Abdominal Exam: Soft, Non-Tender Extremities: No Pedal Edema Skin: Warm, Dry, Intact - Problem List Review Problem List Initiated/Reviewed/Updated: Yes - My Orders Last 24 Hours: My Active Orders 12/09/17 23:45 Montelukast [Singulair] 10 mg PO ASDIRECTED 12/09/17 23:57 Oxygen Therapy [RC] PRN Vital Signs [RC] Q4H Acetaminophen [Tylenol] 650 mg PO Q4H PRN Ondansetron [Zofran] 4 mg IVPUSH Q4H PRN Sequential Compression Device [OM.PC] Per Unit Routine Resuscitation Status Routine 12/09/17 23:59 RT Aerosol Therapy [RC] ASDIRECTED Albuterol [Ventolin HFA] 0 gm INH Q2H PRN 12/10/17 00:00 Azithromycin [Zithromax] 500 mg PO Q24H Enoxaparin [Lovenox] 40 mg SUBCUT Q24H 12/10/17 00:02 Telemetry Monitoring [Cardiac Monitoring] [RC] . DIRECTED 12/10/17 02:00 Albuterol/Ipratropium [DuoNeb 3.0-0.5 MG/3 ML] 3 ml NEB Q4HRRT 12/10/17 06:00 methylPREDNISolone Sod Succ [Solu-MEDROL] 125 mg IVPUSH Q8H 12/10/17 21:00 Simvastatin [Zocor] 10 mg PO BEDTIME - Plan Plan:: 52 yo male presenting with dyspnea Reactive airway disease. Will continue solumedrol, duonebs, and azithromycin. Hypoxia is improving but is tachycardic Dispo: likely home tomorrow.
[2017-12-10] MEDS: Montelukast 10 MG Tab PO SCH ×2 (20:19→20:20)
[2017-12-10] MEDS ORDERED: Fluticasone Propionate Nasal Spray 16 GM Bottle NASBOTH SCH (20:45)
[2017-12-10] MEDS ORDERED: Simvastatin 10 MG Tab PO SCH (21:00)
[2017-12-10] MEDS: Fluticasone Propionate Nasal Spray 16 GM Bottle NASBOTH PRN (21:27)
[2017-12-11] MEDS ORDERED: guaiFENesin/Dextromethorphan 100-10 MG/5 ML Soln 10 ML Cup PO PRN (00:32)
[2017-12-11] MEDS: Azithromycin 250 MG Tab PO SCH (00:49)
[2017-12-11] MEDS: Enoxaparin 40 MG/0.4 ML Syringe SUBCUT SCH (00:49)
[2017-12-11] MEDS: Albuterol/Ipratropium 3.0-0.5 MG/3 ML Neb Soln NEB SCH ×3 (01:03→10:40)
[2017-12-11] MEDS: methylPREDNISolone Sodium Succinate 125 MG/2 ML SDV IVPUSH SCH (06:09)
[2017-12-11 06:15] LABS: CHLORIDE,CL 106 mmol/L (98-107); SODIUM,NA 141 mmol/L (136-148)
[2017-12-11] MEDS: Fluticasone Propionate Nasal Spray 16 GM Bottle NASBOTH PRN (09:09)
[2017-12-11] MEDS ORDERED: Fluticasone/Salmeterol 250-50 MCG Inhalation Powder 14/Diskus INH SCH (11:30)
[2017-12-11 12:01] VITALS: BP 111/77
--- NOTE | 2017-12-11 12:04 | CR ---
EXAM DATE: 12/09/17 PATIENT'S AGE: 52 Patient: YURIDIA MCKEON Facility: [place], [place] Site . Site : [id number] Study: XRay Chest [id number] 9:54:25 PM Ordering Physician: Doctor Suarez Final Report: INDICATION: Chest Pain, shortness of breath TECHNIQUE: Chest radiograph 2 views COMPARISON: None FINDINGS: Mediastinum: The heart silhouette is normal in size and morphology. The mediastinum is normal in appearance. Lungs: Both lungs are unremarkable in appearance. No sign of pleural effusion seen. No pneumothorax is identified. Bones and soft tissue: Unremarkable for age. IMPRESSION: 1. No acute cardiopulmonary disease is seen. Dictated by: Adriano Penn MD @ 12/09/2017 22:04:11 (Electronic Signature) Report Signed by Proxy. [facility]
--- NOTE | 2017-12-11 13:25 | PCM.DCSUM1 ---
Discharge Summary - Hospital Course Brief History: 52 yo male who presents with shortness of breath, wheezing and cough. Patient denies any history of asthma or COPD but reports since August he has been having difficulty with shortness of breath. Today he reports shortness with walking at home. He was a smoker in the 80s and has a history of H2S exposure approximately 6-7 years ago. - Discharge Data Discharge Date: 12/11/17 Discharge Disposition: Home, Self-Care 01 Condition: Good - Patient Instructions Diet: Regular Diet as Tolerated Activity: As Tolerated Showering/Bathing: May Shower Notify Provider of: Fever, Increased Pain, Swelling and Redness, Drainage, Nausea and/or Vomiting - Discharge Plan Prescriptions/Med Rec: Azithromycin 500 mg PO DAILY #5 tablet Benzonatate [Tessalon Perle] 100 mg PO TID PRN #45 capsule PRN Reason: Cough Dextromethorphan/guaiFENesin [Robitussin DM] 10 ml PO Q6H PRN #1 bottle PRN Reason: Cough Fluticasone/Salmeterol [Advair 250-50] 1 puff INH BID #1 diskus Prednisone [IJD: Prednisone] 10 - 40 mg PO DAILY #30 tab Home Medications: Home Meds Simvastatin [Zocor] 10 mg PO DAILY 10/23/17 [History] Albuterol [IJD: Albuterol HFA] 1 - 2 puff INH ASDIRECTED PRN 12/04/17 [History] Montelukast Sodium 1 tab PO ASDIRECTED 12/04/17 [History] Azithromycin 500 mg PO DAILY #5 tablet 12/11/17 [Rx] Benzonatate [Tessalon Perle] 100 mg PO TID PRN #45 capsule 12/11/17 [Rx] Dextromethorphan/guaiFENesin [Robitussin DM] 10 ml PO Q6H PRN #1 bottle [Rx] Fluticasone Propionate [Flonase] 1 spray NASBOTH BID PRN #1 bottle 12/11/17 [Rx] Fluticasone/Salmeterol [Advair 250-50] 1 puff INH BID #1 diskus 12/11/17 [Rx] Prednisone [IJD: Prednisone] 10 - 40 mg PO DAILY #30 tab 12/11/17 [Rx] Patient Handouts: Shortness of Breath, Adult, [id number], Dextromethorphan; Guaifenesin oral solution, Azithromycin tablets, Asthma, Acute Bronchospasm, Prednisone tablets, Fluticasone; Salmeterol inhalation aerosol, Benzonatate capsules Referrals: [facility] [Outside] Jessa Atkins PA [Physician Clinical Care Manager] - 12/19/17 8:45 am - Discharge Summary/Plan Comment DC Time >30 min.: No Discharge Summary/Plan Comment: Discharge Diagnoses: Reactive airway disease Kyle was admitted and treated for reactive airway disease with IV Solu-medrol , Azithromycin and Duonebs. Today he is feeling better, continues to have tight cough with clear sputum, reports a lot of it is due to post nasal drip he has after facial surgery some years ago. He reports feeling better and ready to be sent home. His heart rate has decreased to 80-90s and oxygen is no longer needed , sating 94% on RA. He will be started on Advair 250/50 along with sent home with Prednisone taper and Azithromycin x 5 more days. He has follow up with PCP next week and also has previously scheduled appointment with Pulmonology in [place] to assess the new onset of dyspnea. he is to return to ED or clinic if concerns should arise. - General Info Date of Service: 12/11/17 Admission Dx/Problem (Free Text: Admission Diagnosis/Problem Admission Diagnosis/Problem Hypoxia Subjective Update: Sitting on edge of bed feeling better, oxygen off and no dyspnea noted. Continues to have cough, but reports this is mainly due to post nasal drip and Flonase is helping. No chest pain or dyspnea. Eager to be discharged home. Functional Status: Reports: Pain Controlled, Tolerating Diet, Ambulating, Urinating - Review of Systems General: Reports: No Symptoms. Denies: Fever, Weakness, Fatigue, Malaise HEENT: Reports: Post Nasal Drip (at baseline.) Pulmonary: Reports: Cough, Sputum (clear). Denies: Shortness of Breath Cardiovascular: Reports: No Symptoms. Denies: Chest Pain, Palpitations, Dyspnea on Exertion, Orthopnea Gastrointestinal: Reports: No Symptoms. Denies: Abdominal Pain, Nausea, Vomiting Genitourinary: Reports: No Symptoms. Denies: Dysuria, Frequency, Burning Musculoskeletal: Reports: No Symptoms. Denies: Neck Pain Neurological: Reports: No Symptoms. Denies: Confusion Psychiatric: Reports: No Symptoms. Denies: Confusion - Patient Data Vitals - Most Recent: Last Vital Signs Temp 96.8 F 12/11/17 12:00 Pulse 107 H 12/11/17 12:00 Resp 22 H 12/11/17 12:00 BP 111/77 12/11/17 12:00 Pulse Ox 91 L 12/11/17 12:00 Weight - Most Recent: 70 kg I&O - Last 24 hours: Intake & Output 12/10/17 12/11/17 12/11/17 22:59 06:59 14:59 Intake Total 1450 1000 Output Total 1300 850 Balance 150 150 Lab Results - Last 24 hrs: Laboratory Results - last 24 hr 12/11/17 12/11/17 Range/Units 05:38 05:38 WBC 13.01 H (4.0-11.0) K/uL RBC 4.58 (4.50-5.90) M/uL Hgb 14.3 (13.0-17.0) g/dL Hct 42.5 (38.0-50.0) % MCV 92.8 (80.0-98.0) fL MCH 31.2 (27.0-32.0) pg MCHC 33.6 (31.0-37.0) g/dL RDW Std Deviation 50.5 (28.0-62.0) fl RDW Coeff of [place] 15 (11.0-15.0) % Plt Count 269 (150-400) K/uL MPV 10.50 (7.40-12.00) fL Neut % (Auto) 88.3 H (48.0-80.0) % Lymph % (Auto) 7.0 L (16.0-40.0) % Perry % (Auto) 4.7 (0.0-15.0) % Eos % (Auto) 0.0 (0.0-7.0) % Baso % (Auto) 0.0 (0.0-1.5) % Neut # (Auto) 11.5 H (1.4-5.7) K/uL Lymph # (Auto) 0.9 (0.6-2.4) K/uL Perry # (Auto) 0.6 (0.0-0.8) K/uL Eos # (Auto) 0.0 (0.0-0.7) K/uL Baso # (Auto) 0.0 (0.0-0.1) K/uL Nucleated RBC % 0.0 /100WBC Nucleated RBCs # 0 K/uL Sodium 141 (136-148) mmol/L Potassium 4.6 (3.5-5.1) mmol/L Chloride 106 (98-107) mmol/L Carbon Dioxide 23.6 (21.0-32.0) mmol/L BUN 16 (7.0-18.0) mg/dL Creatinine 1.1 (0.8-1.3) mg/dL Est Cr Clr Drug Dosing 75.11 mL/min Estimated GFR (MDRD) > 60.0 ml/min Glucose 142 H (74-106) mg/dL Calcium 9.3 (8.5-10.1) mg/dL Med Orders - Current: Current Medications Acetaminophen (Tylenol) 650 mg PO Q4H PRN PRN Reason: Pain (Mild 1-3)/fever Albuterol (Ventolin Hfa) 0 gm INH Q2H PRN PRN Reason: Shortness of Breath Albuterol/Ipratropium (Duoneb 3.0-0.5 Mg/3 Ml) 3 ml NEB Q4HRRT [facility] Last Admin: 12/11/17 10:40 Dose: 3 ml Azithromycin (Zithromax) 500 mg PO Q24H [facility] Last Admin: 12/11/17 00:49 Dose: 500 mg Enoxaparin Sodium (Lovenox) 40 mg SUBCUT Q24H [facility] Last Admin: 12/11/17 00:49 Dose: 40 mg Fluticasone Propionate (Flonase) 0 gm NASBOTH BID PRN PRN Reason: Congestion Last Admin: 12/11/17 09:09 Dose: 1 spray Guaifenesin/Dextromethorphan (Robitussin Dm) 10 ml PO Q6H PRN PRN Reason: Cough Last Admin: 12/11/17 00:51 Dose: 10 ml Methylprednisolone Sodium Succinate (Solu-Medrol) 125 mg IVPUSH Q8H [facility] Last Admin: 12/11/17 06:09 Dose: 125 mg Montelukast Sodium (Singulair) 10 mg PO BEDTIME [facility] Last Admin: 12/10/17 20:20 Dose: Not Given Ondansetron HCl (Zofran) 4 mg IVPUSH Q4H PRN PRN Reason: Nausea Fluticasone/Salmeterol (Advair Diskus 250-50) 1 puff INH BID [facility] Last Admin: 12/11/17 12:06 Dose: 1 inhalation Simvastatin (Zocor) 10 mg PO BEDTIME [facility] Last Admin: 12/10/17 20:19 Dose: 10 mg Discontinued Medications Albuterol/Ipratropium (Duoneb 3.0-0.5 Mg/3 Ml) 3 ml NEB ONETIME ONE Stop: 12/09/17 21:16 Last Admin: 12/09/17 21:19 Dose: 3 ml Albuterol/Ipratropium (Duoneb 3.0-0.5 Mg/3 Ml) 3 ml NEB ONETIME ONE Stop: 12/09/17 21:53 Last Admin: 12/09/17 22:05 Dose: 3 ml Fluticasone Propionate (Flonase) 0 gm NASBOTH DAILY [facility] Last Admin: 12/10/17 21:13 Dose: Not Given Methylprednisolone Sodium Succinate (Solu-Medrol) 125 mg IVPUSH ONETIME ONE Stop: 12/09/17 22:51 Last Admin: 12/09/17 23:06 Dose: 125 mg Montelukast Sodium (Singulair) 10 mg PO ASDIRECTED [facility] - Exam Quality Assessment: Reports: DVT Prophylaxis. Denies: Supplemental Oxygen General: Reports: Alert, Oriented, Cooperative, No Acute Distress Neck: Reports: Supple Lungs: Reports: Clear to Auscultation, Normal Respiratory Effort Cardiovascular: Reports: Regular Rate, Regular Rhythm GI/Abdominal Exam: Normal Bowel Sounds, Soft, Non-Tender, No Organomegaly, No Distention, No Abnormal Bruit, No Mass, Pelvis Stable Extremities: Normal Inspection, Normal Range of Motion, Non-Tender, No Pedal Edema, Normal Capillary Refill Neurological: Reports: No New Focal Deficit Psy/Mental Status: Reports: Alert, Normal Affect, Normal Mood
== END 2017-12-11 12:41 | disposition home or self-care (01) ==
LOC: MW.ED 21:01 → MW.MS 22:48
PROVIDERS: ADMIT Internal Medicine; ATTEND Internal Medicine
DX: J45.909 Unspecified asthma, uncomplicated (principal); E78.00 Pure hypercholesterolemia, unspecified; Z79.2 Long term (current) use of antibiotics; Z79.899 Other long term (current) drug therapy; Z88.8 Allergy status to other drugs, medicaments and biological substances
CPT/HCPCS: 36415; 71046; 80048; 80053; 81001; 83880; 84484; 85025; 85027; 85379; 85610; 87804; 93005; 94640; 96374; 99285; A9270; J1650; J2930; 96372; 96376; 99283; G0378

== ENCOUNTER 2019-07-13 15:02 | Emergency (ER) | payer OTHER, BC ==
[2019-07-13] MEDS ORDERED: Diphtheria,Pertussis(Acell),Tetanus Vaccine 0.5 ML Syringe IM ONE (15:15)
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
== END 2019-07-13 15:57 | disposition home or self-care (01) ==
LOC: MW.ED 15:02
DX: S61.217A Laceration without foreign body of left little finger without damage to nail, initial encounter (principal); J44.9 Chronic obstructive pulmonary disease, unspecified; E78.5 Hyperlipidemia, unspecified; Z88.5 Allergy status to narcotic agent; Z88.8 Allergy status to other drugs, medicaments and biological substances; Z23 Encounter for immunization; Z79.899 Other long term (current) drug therapy; W26.0XXA Contact with knife, initial encounter; Y93.89 Activity, other specified
CPT/HCPCS: 12001; 90471; 90715; 99282; J2001

== ENCOUNTER 2019-07-23 12:15 | Emergency (ER) | payer OTHER, BC | END 2019-07-23 12:30 | disposition left against medical advice (07) | LOC: MW.ED 12:15 | DX: Z53.21 Procedure and treatment not carried out due to patient leaving prior to being seen by health care provider (principal) ==